=== PATIENT | male | born 1965 | race Two or more races ===

== ENCOUNTER 2018-10-28 10:24 | Emergency (ER) | payer SELFPAY ==
[~2018-10-28] VITALS: Ht 172.7 cm; Wt 65.8 kg
--- NOTE | 2018-10-28 10:24 | NUR ---
PT BIBRA FROM HOME, C/O OF LOWER ABDOMINAL PAIN 45MINS AGO, PT IS AAOX4, NOT IN RESPIRATORY DISTRESS, HOOKED TO MONITOR, KEPT RESTED AND COMFORTABLE, WILL CONTINUE TO MONITOR.
--- NOTE | 2018-10-28 10:40 | NUR ---
URINE SPECIMEN COLLECTED AND SENT TO LAB.
--- NOTE | 2018-10-28 10:50 | NUR ---
SEEN AND EXAMINED BY
[2018-10-28] MEDS ORDERED: ONDANSETRON HCL/PF 4 MG/2 ML VIAL ONE (10:59)
[2018-10-28] MEDS ORDERED: KETOROLAC TROMETHAMINE 15 MG/ML VIAL ONE (10:59)
[2018-10-28] MEDS ORDERED: HYDROMORPHONE 1 MG/1 ML DISP.SYRIN ONE (10:59)
[2018-10-28 11:00] LABS: BASOPHILS % (AUTO) 0.3 % (0.0-2.0); EOSINOPHILS % (AUTO) 3.2 % (0.0-6.0); HEMATOCRIT 44 % (39-51); HEMOGLOBIN 14.8 g/dL (13.5-17.5); LYMPHOCYTES # (AUTO) 3.6 /CMM (0.8-4.8); LYMPHOCYTES % (AUTO) 47.6 % (20.0-44.0); MEAN CORPUSCULAR HGB CONC 34 g/dl (31.0-36.0); MEAN CORPUSCULAR VOLUME 91 fL (80-96); MONOCYTES # (AUTO) 0.8 /CMM (0.1-1.30); MONOCYTES % (AUTO) 11.2 % (2.0-12.0); NEUTROPHILS # (AUTO) 2.8 /CMM (1.8-8.9); NEUTROPHILS % (AUTO) 37.7 % (43.0-81.0); PLATELET COUNT (AUTO) 288 /CMM (150-450); RED BLOOD CELL COUNT(AUTO) 4.83 MIL/uL (4.5-6.0); WHITE BLOOD COUNT (AUTO) 7.5 K/uL (4.3-11.0)
[2018-10-28] MEDS ORDERED: KETOROLAC TROMETHAMINE INJ 30 MG/ML VIAL IV ONE (11:00)
[2018-10-28] MEDS ORDERED: ONDANSETRON HCL/PF 4 MG/2 ML VIAL IVP ONE (11:00)
[2018-10-28] MEDS ORDERED: HYDROMORPHONE INJ 2 MG/ML DISP.SYRIN IV ONE (11:00)
[2018-10-28] MEDS ORDERED: IV NS 0.9% 1,000 ML BAG IV ONE (11:00)
[2018-10-28 11:06] LABS: APPEARANCE,URINE Clear (CLEAR); BILIRUBIN,URINE Negative (NEGATIVE); BLOOD, URINE Negative Ery/uL (NEGATIVE); COLOR,URINE Yellow (YELLOW); KETONES,URINE Negative (NEGATIVE); LEUKOCYTE ESTERASE ,URINE Small (NEGATIVE); NITRITE, URINE Positive (NEGATIVE); PROTEIN,URINE Negative (NEGATIVE); UGLUCOSE Negative (NEGATIVE); UROBILINOGEN,URINE 0.2 EU/dL (0.2)
[2018-10-28 11:09] LABS: CALCIUM, SERUM 8.9 mg/dL (8.5-10.1); CREATININE 0.8 mg/dL (0.6-1.3); POTASSIUM 4.1 mmol/L (3.5-5.1)
--- NOTE | 2018-10-28 11:12 | NUR ---
PT WHEELED TO CT SCAN VIA [facility].
[2018-10-28 11:13] LABS: ALBUMIN 3.2 g/dL (3.4-5.0); BILIRUBIN,DIRECT 0.1 mg/dL (0.0-0.2); BILIRUBIN,TOTAL 0.2 mg/dL (0.2-1.0); TOTAL PROTEIN, SERUM 6.9 g/dL (6.4-8.2)
[2018-10-28 11:16] LABS: BACTERIA,URINE 3+ /HPF (None Seen); RBC,URINE NONE SEEN /HPF (0-2); SQUAMOUS EPITHELIAL CELL,UR Few /HPF (None Seen)
[2018-10-28] MEDS ORDERED: NA PHOS,M-B/NA PHOS,DI-BA 1 EA ENEMA RC ONE ×2 (12:30→12:44)
[2018-10-28] MEDS ORDERED: MAGNESIUM CITRATE 296 ML BOTTLE PO ONE (12:30)
[2018-10-28] MEDS ORDERED: CEFTRIAXONE 1 G in IV D5W 50 ML IV ONE (12:30)
[2018-10-28] MEDS ORDERED: CEFTRIAXONE 1GM BAG (ER ONLY) 50 ML IV ONE (12:43)
[2018-10-28] MEDS ORDERED: MAGNESIUM CITRATE 296 ML BOTTLE ONE (12:44)
--- NOTE | 2018-10-28 13:27 | NUR ---
IV removed. Catheter intact and site benign. Pressure and 4x4 applied to site. No bleeding noted. Patient discharged to home in stable condition. Written and verbal after care instructions given. Patient verbalizes understanding of instruction.
[2018-10-28 13:39] VITALS: BP 112/71
== END 2018-10-28 13:41 | disposition home or self-care (01) ==
LOC: ER 10:25
DX: F15.10 Other stimulant abuse, uncomplicated (principal); R30.0 Dysuria; K56.41 Fecal impaction
CPT/HCPCS: 36415; 74176; 80048; 80076; 80305; 81001; 83690; 85025; 87077; 87086; 87186; 96365; 96375; 99284; J0696; J1170; J1885; J2405; J7030 ×2; 81000-TC; J7060

== ENCOUNTER 2020-04-01 04:40 | Emergency (ER) | payer MEDICAID ==
[~2020-04-01] VITALS: Ht 172.7 cm; Wt 65.8 kg
[2020-04-01 05:30] VITALS: BP 135/83
== END 2020-04-01 05:55 | disposition home or self-care (01) ==
LOC: ER 04:42
DX: J06.9 Acute upper respiratory infection, unspecified (principal); Z88.2 Allergy status to sulfonamides

== ENCOUNTER 2020-05-16 04:32 | Emergency (ER) | payer SELFPAY ==
[~2020-05-16] VITALS: Ht 172.7 cm; Wt 59.0 kg
--- NOTE | 2020-05-16 04:42 | NUR ---
PT AAOX4. BIBSELF C/O WOUND ON BUTTOCKS FOR THE PAST WEEK. MD AT BEDSIDE FOR EVAL. AWITING ORDERS.
[2020-05-16] MEDS ORDERED: CLINDAMYCIN 900 MG/6 ML VIAL ONE (05:15)
[2020-05-16] MEDS ORDERED: HYDROMORPHONE 1 MG/1 ML DISP.SYRIN ONE (05:16)
[2020-05-16] MEDS ORDERED: FLUCONAZOLE (100 MG) 100 MG TABLET ONE (05:17)
[2020-05-16] MEDS ORDERED: LAMIVUDINE/ZIDOVUDINE 150-300 1 TAB TABLET ONE (05:17)
[2020-05-16] MEDS ORDERED: CLIN300C12 PO (05:29)
[2020-05-16] MEDS ORDERED: OXYC-128 PO (05:29)
[2020-05-16] MEDS ORDERED: LAMI1TAB PO (05:29)
[2020-05-16] MEDS ORDERED: FLUC200T PO (05:29)
[2020-05-16] MEDS ORDERED: CLINDAMYCIN 900 MG in IV D5W 100 ML IV ONE (05:30)
[2020-05-16] MEDS ORDERED: HYDROMORPHONE INJ 2 MG/ML DISP.SYRIN IV ONE (05:30)
[2020-05-16] MEDS ORDERED: LAMIVUDINE/ZIDOVUDINE 150-300 1 TAB TABLET PO ONE (05:30)
[2020-05-16] MEDS ORDERED: FLUCONAZOLE (100 MG) 100 MG TABLET PO ONE (05:30)
--- NOTE | 2020-05-16 05:32 | NUR ---
PT REFUSED 0.5MG DILAUDID. WITNESSED WASTE WITH KRAIG HERMOSILLO
--- NOTE | 2020-05-16 05:41 | NUR ---
PT REFUSED DILAUDID 0.5MG, WASTED WITH MAYLIN CORNELL.
[2020-05-16 05:50] LABS: BASOPHILS % (AUTO) 0.3 % (0.0-2.0); EOSINOPHILS % (AUTO) 0.5 % (0.0-6.0); HEMATOCRIT 36 % (39-51); LYMPHOCYTES # (AUTO) 1.3 /CMM (0.8-4.8); LYMPHOCYTES % (AUTO) 35.4 % (20.0-44.0); MEAN CORPUSCULAR HGB CONC 33 g/dl (31.0-36.0); MEAN CORPUSCULAR VOLUME 88 fL (80-96); MONOCYTES # (AUTO) 0.6 /CMM (0.1-1.30); MONOCYTES % (AUTO) 16.1 % (2.0-12.0); NEUTROPHILS # (AUTO) 1.8 /CMM (1.8-8.9); NEUTROPHILS % (AUTO) 47.7 % (43.0-81.0); PLATELET COUNT (AUTO) 63 /CMM (150-450); RED BLOOD CELL COUNT(AUTO) 4.08 MIL/uL (4.5-6.0); WHITE BLOOD COUNT (AUTO) 3.7 K/uL (4.3-11.0)
[2020-05-16 06:08] LABS: CALCIUM, SERUM 8.5 mg/dL (8.5-10.1); CREATININE 0.9 mg/dL (0.6-1.3); POTASSIUM 3.8 mmol/L (3.5-5.1)
[2020-05-16 06:13] LABS: BILIRUBIN,DIRECT 0.1 mg/dL (0.0-0.2); BILIRUBIN,TOTAL 0.4 mg/dL (0.2-1.0); TOTAL PROTEIN, SERUM 8.2 g/dL (6.4-8.2)
[2020-05-16 06:16] LABS: NEUTROPHILS % (MANUAL) 45 (42-76)
[2020-05-16 06:17] LABS: LYMPHOCYTES % (MANUAL) 24 % (16-48); MONOCYTES % (MANUAL) 31 % (0-11.0)
[2020-05-16 06:44] VITALS: BP 119/81
--- NOTE | 2020-05-16 06:44 | NUR ---
IV removed. Catheter intact and site benign. Pressure and 4x4 applied to site. No bleeding noted.
--- NOTE | 2020-05-16 06:44 | NUR ---
Patient discharged to home in stable condition. Written and verbal after care instructions given. Patient verbalizes understanding of instruction and RX. Pt ambulated out of ED. VSS.
== END 2020-05-16 06:45 | disposition home or self-care (01) ==
LOC: ER 04:37
DX: K61.0 Anal abscess (principal); D84.89 Other immunodeficiencies; L08.9 Local infection of the skin and subcutaneous tissue, unspecified; B37.0 Candidal stomatitis; Z88.2 Allergy status to sulfonamides
CPT/HCPCS: 36415; 80048; 80076; 85007; 85025; 85730; 87040 ×2; 96365; 99284; J1170; J3490 ×2; J7060

== ENCOUNTER 2020-07-30 00:51 | Inpatient (IN) | payer SELFPAY ==
[~2020-07-30] VITALS: Ht 170.2 cm; Wt 53.2 kg
[~2020-07-30 00:51] MED LIST: CLIN300C12 PO; FLUC200T PO; LAMI1TAB PO; OXYC-128 PO
--- NOTE | 2020-07-30 01:10 | NUR ---
BIBSELF FROM HOME WITH C/C SOB OF BREATH AND ORAL THRUSH AND THROAT MUCUS, PAIN ON THROAT ALSO COMPLAINT, PT IS AA/O X4, AMBULATORY WITH STEADY GAIT HOOK TO MONITOR AND SPOX WILL CONT TO MONITOR
[2020-07-30] MEDS ORDERED: IV NS 0.9% 1,000 ML BAG IV ONE (01:30)
[2020-07-30 01:33] LABS: BASOPHILS # (AUTO) 0.1 /CMM (0.0-0.2); BASOPHILS % (AUTO) 1.1 % (0.0-2.0); EOSINOPHILS % (AUTO) 1.4 % (0.0-6.0); HEMATOCRIT 36 % (39-51); HEMOGLOBIN 11.9 g/dL (13.5-17.5); LYMPHOCYTES # (AUTO) 1.6 /CMM (0.8-4.8); LYMPHOCYTES % (AUTO) 32.5 % (20.0-44.0); MEAN CORPUSCULAR HGB CONC 33 g/dl (31.0-36.0); MEAN CORPUSCULAR VOLUME 90 fL (80-96); MONOCYTES # (AUTO) 0.7 /CMM (0.1-1.30); MONOCYTES % (AUTO) 13.7 % (2.0-12.0); NEUTROPHILS # (AUTO) 2.6 /CMM (1.8-8.9); NEUTROPHILS % (AUTO) 51.3 % (43.0-81.0); PLATELET COUNT (AUTO) 165 /CMM (150-450); RED BLOOD CELL COUNT(AUTO) 4.02 MIL/uL (4.5-6.0); WHITE BLOOD COUNT (AUTO) 5.1 K/uL (4.3-11.0)
[2020-07-30 01:41] LABS: CALCIUM, SERUM 8.7 mg/dL (8.5-10.1); CARBON DIOXIDE 32 mmol/L (21-32); CHLORIDE 102 mmol/L (98-107); CREATININE 0.8 mg/dL (0.6-1.3); GLUCOSE 88 mg/dL (74-106); POTASSIUM 4.2 mmol/L (3.5-5.1); SODIUM SERUM 139 mmol/L (136-145); UREA NITROGEN, BLOOD 10 mg/dL (7-18)
[2020-07-30 01:48] LABS: ALANINE AMINOTRANSFERASE 37 U/L (12-78); ALBUMIN 2.7 g/dL (3.4-5.0); ALKALINE PHOSPHATASE 103 U/L (46-116); ASPARTATE AMINOTRANSFERASE 32 U/L (15-37); BILIRUBIN,DIRECT 0.1 mg/dL (0.0-0.2); BILIRUBIN,TOTAL 0.3 mg/dL (0.2-1.0); TOTAL PROTEIN, SERUM 8.3 g/dL (6.4-8.2)
[2020-07-30] MEDS ORDERED: AZITHROMYCIN 500 MG VIAL ONE (01:59)
[2020-07-30] MEDS ORDERED: CEFTRIAXONE 1GM BAG (ER ONLY) 50 ML IV ONE (01:59)
[2020-07-30] MEDS ORDERED: IV NS 0.9% 1,000 ML IV PRN (02:00)
[2020-07-30] MEDS ORDERED: ACETAMINOPHEN 325 MG TABLET PO PRN (02:00)
[2020-07-30] MEDS ORDERED: HYDROCODONE/APAP 5/325MG TABLET PO PRN (02:00)
[2020-07-30] MEDS ORDERED: ZOLPIDEM TARTRATE 5 MG TABLET PO PRN (02:00)
[2020-07-30] MEDS ORDERED: CEFTRIAXONE 1GM BAG (ER ONLY) 1 GM/50 ML PIGGYBACK IV ONE (02:00)
[2020-07-30] MEDS ORDERED: D5W IV SCH ×3 (02:00→09:00)
[2020-07-30] MEDS ORDERED: MAG HYDROX/AL HYDROX/SIMETH 30 ML UDC PO PRN (02:00)
[2020-07-30] MEDS ORDERED: PENTAMIDINE ISETHIONATE IV SCH ×3 (02:00→09:00)
[2020-07-30] MEDS ORDERED: AZITHROMYCIN 500 MG in IV D5W 250 ML IV ONE (02:00)
[2020-07-30] MEDS ORDERED: ONDANSETRON HCL/PF 4 MG/2 ML VIAL IVP PRN (02:00)
[2020-07-30] MEDS ORDERED: Z GUARD REMEDY 2 OZ OINT TP PRN (02:00)
--- NOTE | 2020-07-30 02:12 | NUR ---
COVID SWAB COLLECTED AND SENT TO LAB
--- NOTE | 2020-07-30 02:45 | NUR ---
COVID TEST PCR DONE SPECIMEN SEND TO LAB
--- NOTE | 2020-07-30 03:08 | NUR ---
BED 107
--- NOTE | 2020-07-30 03:20 | NUR ---
REPORT GIVEN TO REE CORNELL FOR VIJAYA
--- NOTE | 2020-07-30 03:30 | NUR ---
RN OPENING NOTE ADMIT 54 YEAR OLD MALE TO CHET UNIT FROM ER ALERT ORIENTED X4 VERBALLY RESPONSIVE ON ROOM AIR O2:100% DIAGNOSIS: PNA,AMBULATORY CONTINENT TO BOWEL/BLADDER IV SITE IS ON RIGHT AC INTACT PATENT SAFETY MEASURE IMPLEMENT CALL LIGHT WITHIN REACH CONTINUE TO MONITOR.
--- NOTE | 2020-07-30 03:31 | NUR ---
TRANSFER PT TO ROOM 107 VIA ACLS PROTOCOL PT IS AA/O X4 ON ROOM AIR NO RESPIRATORY DISTRESS AT THIS TIME, STILL COMPLAINING OF THROAT MUCUS PLUG ABLE TO COUGH, ABLE TO AMBULATE FROM GURNEY TO BED, RECEIVING NURSE AND INGOT HEADER AT BEDSIDE, BELONGINGS ENDORSED
[2020-07-30 04:00] VITALS: BP 103/58
--- NOTE | 2020-07-30 06:34 | NUR ---
RN CLOSING NOTE RESIDENT RECEIVED ALERT ORIENTED X4 VERBALLY RESPONSIVE NO SOB NOT ACUTE DISTRESS NOTED,JV SITE IS ON RIGHT IVAV -INTACT PATENT ON IV HYDRATION 75CC/HR CONTINET TO BOWEL/BLADDER,ENDORSE NEXT COMING SHIFT FOR CONTINUATION OF ACRE
--- NOTE | 2020-07-30 07:01 | NUR ---
SUPERVISOR ROCKET PROPELLANT PLANT OPENING NOTES RECEIVED PT AWAKE IN BED IN NO ACUTE SIGNS OF DISTRESS. A/O X4. ABLE TO MAKE NEEDS KNOWN, DENIES PAIN OR ANY DISCOMFORTS AT THIS TIME. EXTERNAL THERMAL CUTTING TRACER MACHINE OPERATOR SHOWS NSR WITH HR ON THE 70'S, NO C/O CARDIAC DISTRESS VOICED AT THIS TIME. IV SITE ON RIGHT AC G#20 INTACT AND PATENT, IVF OF NS @ 75ML/HR INFUSING WELL. SAFETY MEASURE IN PLACE: BED IN LOWEST LOCKED POSITION WITH SR UP X2. CALL LIGHT WITHIN REACH. WILL CONTINUE TO MONITOR PT ACCORDINGLY. .
[2020-07-30 08:00] VITALS: BP 105/63
[2020-07-30] MEDS ORDERED: LAMIVUDINE/ZIDOVUDINE 150-300 1 TAB TABLET PO SCH (09:00)
[2020-07-30] MEDS ORDERED: FLUCONAZOLE (100 MG) 100 MG TABLET PO SCH (09:00)
[2020-07-30] MEDS ORDERED: CEFTRIAXONE 1 G in IV D5W 50 ML IV SCH ×2 (10:00→21:00)
[2020-07-30] MEDS ORDERED: AZITHROMYCIN 500 MG in IV D5W 250 ML IV SCH ×2 (10:00→23:00)
[2020-07-30] MEDS: NYSTATIN (PYXIS) 500,000 UNIT/5 ML ORAL.SUSP PO SCH ×2 (10:14→13:18)
--- NOTE | 2020-07-30 13:41 | NUR ---
RN NOTES URINE SPECIMEN COLLECTED. CALLED LAB TO PICK-UP SPECIMEN FROM [facility].
--- NOTE | 2020-07-30 15:16 | NUR ---
RN NOTES PT VERBALIZED THAT HE WANTS TO GO AMA BECAUSE HE LEFT HIS 10 MONTH OLD DOG IN HIS HOME UNATTENDED AND NO ONE COULD TAKE CARE OF IT. EXPLAINED RISKS AND CONSEQUENCES IN LEAVING THE HOSPITAL AMA . HE VERBALIZED UNDERSTANDING OF RISKS AND CONSEQUENCES. DR MCKEON MADE AWARE. PT SIGNED LEAVING THE HOSPITAL AGAINST MEDICAL ADVICE OR TREATMENT FORM. IV ACCESS ON RAC REMOVED WITH N O BLEEDING AT SITE NOTED, DRY DRESSING APPLIED AT SITE. NAME ARMBAND REMOVED. LEFT UNIT AMBULATORY AT 1505. CN MACIE AWARE OF PT'S AMA.
[2020-07-30 16:53] LABS: BILIRUBIN,URINE NEGATIVE (NEGATIVE); COLOR,URINE YELLOW (YELLOW); LEUKOCYTE ESTERASE ,URINE NEGATIVE (NEGATIVE); NITRITE, URINE NEGATIVE (NEGATIVE); PROTEIN,URINE NEGATIVE (NEGATIVE); UGLUCOSE NEGATIVE (NEGATIVE)
[2020-07-30 17:09] LABS: BACTERIA,URINE None seen /HPF (None Seen); RBC,URINE 0-2 /HPF (0-2); SQUAMOUS EPITHELIAL CELL,UR 0-2 /HPF (None Seen); WBC,URINE 0-2 /HPF (0-3)
[2020-07-31] MEDS ORDERED: ZITHROMAX 500 MG/250 ML D5W IV SCH (02:00)
== END 2020-07-30 15:12 | disposition left against medical advice (07) | DRG 974 ==
LOC: ER 00:53 → TELE1 03:09 → MEDSG1 09:29
PROVIDERS: ADMIT Internal Medicine; ATTEND Internal Medicine
DX: J15.6 Pneumonia due to other Gram-negative bacteria (principal); N17.0 Acute kidney failure with tubular necrosis; B20 Human immunodeficiency virus [HIV] disease; E43 Unspecified severe protein-calorie malnutrition; B37.0 Candidal stomatitis; B37.81 Candidal esophagitis; J06.9 Acute upper respiratory infection, unspecified; Z88.2 Allergy status to sulfonamides; Z79.899 Other long term (current) drug therapy; R13.10 Dysphagia, unspecified; I95.9 Hypotension, unspecified; F32.9 Major depressive disorder, single episode, unspecified
CPT/HCPCS: 36415; 71045-TC; 80048-TC; 80076-TC; 81001; 83605-TC; 84484-TC; 85025-TC; 85730-TC; 87040-TC; 87081-TC; 87086-TC; C9803; G0378; J0456; J0696; J7030; J7060; U0003

== ENCOUNTER 2020-10-02 20:39 | Emergency (ER) | payer MEDICAID ==
[~2020-10-02] VITALS: Ht 172.7 cm; Wt 48.6 kg
[~2020-10-02 20:39] MED LIST changes: -LAMI1TAB PO; -OXYC-128 PO
--- NOTE | 2020-10-02 21:05 | NUR ---
PT AAOX4. BIBRA86 C/O FEELING WEAK PAST FEW DAYS. ALSO SORETHROAT. PLACED IN BED 19 ON MONITOR AND PULSE OX. AWAITING ER MD FOR EVAL AND ORDERS.
[2020-10-02] MEDS ORDERED: IV NS 0.9% 1,000 ML BAG IV ONE (21:30)
[2020-10-02 21:51] LABS: BASOPHILS % (AUTO) 0.7 % (0.0-2.0); EOSINOPHILS % (AUTO) 2.8 % (0.0-6.0); HEMATOCRIT 31 % (39-51); HEMOGLOBIN 10.4 g/dL (13.5-17.5); LYMPHOCYTES # (AUTO) 0.7 K/uL (0.8-4.8); MEAN CORPUSCULAR HGB CONC 33 g/dl (31.0-36.0); MEAN CORPUSCULAR VOLUME 90 fL (80-96); MONOCYTES # (AUTO) 0.6 K/uL (0.1-1.30); MONOCYTES % (AUTO) 13.6 % (2.0-12.0); NEUTROPHILS # (AUTO) 2.8 K/uL (1.8-8.9); NEUTROPHILS % (AUTO) 66.9 % (43.0-81.0); PLATELET COUNT (AUTO) 140 K/uL (150-450); RED BLOOD CELL COUNT(AUTO) 3.51 MIL/uL (4.5-6.0); WHITE BLOOD COUNT (AUTO) 4.2 K/uL (4.3-11.0)
[2020-10-02 22:09] LABS: CALCIUM, SERUM 8.4 mg/dL (8.5-10.1); CREATININE 0.8 mg/dL (0.6-1.3); POTASSIUM 3.7 mmol/L (3.5-5.1)
[2020-10-02 22:13] LABS: ALBUMIN 2.7 g/dL (3.4-5.0); BILIRUBIN,DIRECT 0.1 mg/dL (0.0-0.2); BILIRUBIN,TOTAL 0.3 mg/dL (0.2-1.0); TOTAL PROTEIN, SERUM 7.7 g/dL (6.4-8.2)
[2020-10-02 22:36] LABS: BILIRUBIN,URINE Negative (NEGATIVE); COLOR,URINE YELLOW (YELLOW); LEUKOCYTE ESTERASE ,URINE Small (NEGATIVE); NITRITE, URINE Negative (NEGATIVE); PROTEIN,URINE Negative (NEGATIVE); UGLUCOSE Negative (NEGATIVE); UROBILINOGEN,URINE 0.2 EU/dL (0.2)
[2020-10-02 22:40] LABS: BACTERIA,URINE 1+ /HPF (None Seen); SQUAMOUS EPITHELIAL CELL,UR Few /HPF (None Seen)
[2020-10-02] MEDS ORDERED: NYST5ORA PO (23:51)
[2020-10-02] MEDS ORDERED: CIPR500T5 PO (23:51)
--- NOTE | 2020-10-03 00:10 | NUR ---
Patient discharged to home in stable condition. Written and verbal after care instructions given. Patient verbalizes understanding of instruction. Pt ambulated out of ED. VSS.
[2020-10-03 01:13] VITALS: BP 112/75
== END 2020-10-03 01:13 | disposition home or self-care (01) ==
LOC: ER 20:39
DX: B37.0 Candidal stomatitis (principal); R53.1 Weakness; D61.818 Other pancytopenia; Z20.822 Contact with and (suspected) exposure to COVID-19; Z88.2 Allergy status to sulfonamides; N39.0 Urinary tract infection, site not specified
CPT/HCPCS: 36415; 71045; 80048; 80076; 81001; 85025; 87086; 87426; 96360; 99284; C9803; J7030

== ENCOUNTER 2020-11-24 05:11 | Emergency (ER) | payer MEDICAID, OTHER ==
[~2020-11-24] VITALS: Ht 172.7 cm; Wt 41.7 kg
[~2020-11-24 05:11] MED LIST changes: +CIPR500T5 PO; +NYST5ORA PO
--- NOTE | 2020-11-24 05:13 | NUR ---
BENJI 37 FROM HOME FOR C/O PALPITATION "HEART RACING" FOR THE PAST 30 MIN. DENIED CP, +SOB. -N/V. PT ALSO W/ C/O SORE THROAT AND INABILITY TO EAT DUE TO ORAL THRUSH. PT AMBULATORY TO BED 2 ER, WAS PLACED ON A MONITOR ;. VSS. WILL CONT TO MONITOR.
[2020-11-24 05:53] LABS: BASOPHILS % (AUTO) 0.6 % (0.0-2.0); HEMATOCRIT 32 % (39-51); HEMOGLOBIN 10.5 g/dL (13.5-17.5); LYMPHOCYTES # (AUTO) 0.9 K/uL (0.8-4.8); LYMPHOCYTES % (AUTO) 22.8 % (20.0-44.0); MEAN CORPUSCULAR HGB CONC 33 g/dl (31.0-36.0); MEAN CORPUSCULAR VOLUME 91 fL (80-96); MONOCYTES # (AUTO) 0.5 K/uL (0.1-1.30); MONOCYTES % (AUTO) 12.5 % (2.0-12.0); NEUTROPHILS # (AUTO) 2.5 K/uL (1.8-8.9); NEUTROPHILS % (AUTO) 63.1 % (43.0-81.0); PLATELET COUNT (AUTO) 139 K/uL (150-450); RED BLOOD CELL COUNT(AUTO) 3.52 MIL/uL (4.5-6.0)
[2020-11-24 05:56] LABS: CALCIUM, SERUM 8.8 mg/dL (8.5-10.1); CARBON DIOXIDE 31 mmol/L (21-32); CHLORIDE 100 mmol/L (98-107); GLUCOSE 103 mg/dL (74-106); POTASSIUM 3.5 mmol/L (3.5-5.1); SODIUM SERUM 139 mmol/L (136-145); UREA NITROGEN, BLOOD 13 mg/dL (7-18)
--- NOTE | 2020-11-24 05:59 | NUR ---
COVID SWAB COLLECTED AND SENT TO LAB
[2020-11-24] MEDS ORDERED: IV D5/ 0.9% NACL 1,000 ML IV ONE (06:00)
[2020-11-24 06:02] LABS: ALANINE AMINOTRANSFERASE 20 U/L (12-78); ALBUMIN 2.9 g/dL (3.4-5.0); ALKALINE PHOSPHATASE 93 U/L (46-116); ASPARTATE AMINOTRANSFERASE 27 U/L (15-37); BILIRUBIN,DIRECT 0.1 mg/dL (0.0-0.2); BILIRUBIN,TOTAL 0.3 mg/dL (0.2-1.0)
[2020-11-24] MEDS ORDERED: NYST5ORA PO (06:17)
[2020-11-24] MEDS ORDERED: FLUC100T8 PO (06:17)
--- NOTE | 2020-11-24 06:53 | NUR ---
Pt is medically stbale for d/c per md. IV removed. Catheter intact and site benign. Pressure and 4x4 applied to site. No bleeding noted.Patient discharged to home in stable condition. Rx and Written and verbal after care instructions given. Patient verbalizes understanding of instruction.
[2020-11-24 06:54] VITALS: BP 106/63
== END 2020-11-24 06:54 | disposition home or self-care (01) ==
LOC: ER 05:12
DX: E86.0 Dehydration (principal); R62.7 Adult failure to thrive; E46 Unspecified protein-calorie malnutrition; Z68.1 Body mass index [BMI] 19.9 or less, adult; B37.0 Candidal stomatitis; R94.31 Abnormal electrocardiogram [ECG] [EKG]; F17.210 Nicotine dependence, cigarettes, uncomplicated; Z88.2 Allergy status to sulfonamides; Z20.822 Contact with and (suspected) exposure to COVID-19
CPT/HCPCS: 36415; 71045; 80048; 80076; 83880; 84484; 85025; 85378; 87426; 93005; 96360; 99285; 99406; C9803; J7042